=== PATIENT | male | born 1960 | race Caucasian/White ===

== ENCOUNTER 2017-10-08 00:48 | Observation (INO) | payer OTHER ==
[2017-10-08 00:52] VITALS: RESP 18
[2017-10-08] MEDS ORDERED: SODIUM CHLORIDE 0.9% 1,000 ML IV STA (00:54)
--- NOTE | 2017-10-08 01:08 | ED ---
General Adult HPI - General Chief complaint: Chest Pain Stated complaint: chest pressure,left arm numbness Time Seen by Provider: 10/08/17 00:54 Source: patient, RN notes reviewed, old records reviewed Mode of arrival: wheelchair Limitations: no limitations - History of Present Illness Initial comments: This is a 56-year-old male to the ER for evaluation. This patient was essay for evaluation regards to chest pain. Patient has history of high blood pressure smoking. Patient comes in with left-sided chest pain: Left-sided chest. States pain started his left arm numbness and tingling. Patient going on throughout the night was unable to sleep. Chest pain evaluated UL from there. Patient continued to have chest pain now no shortness of breath or diaphoresis. No modifying factors - Related Data Allergies Allergy/AdvReac Type Severity Reaction Status Date / Time Penicillins Allergy Unknown Verified 10/08/17 00:52 Review of Systems ROS Statement: Those systems with pertinent positive or pertinent negative responses have been documented in the HPI. ROS Other: All systems not noted in ROS Statement are negative. Past Medical History Past Medical History: Hyperlipidemia, Hypertension History of Any Multi-Drug Resistant Organisms: None Reported Past Surgical History: Orthopedic Surgery Past Psychological History: No Psychological Hx Reported Smoking Status: Current every day smoker Past Alcohol Use History: Rare Past Drug Use History: None Reported General Exam Limitations: no limitations General appearance: alert, in no apparent distress, anxious Head exam: Present: atraumatic, normocephalic, normal inspection Eye exam: Present: normal appearance, PERRL, EOMI. Absent: scleral icterus, conjunctival injection, periorbital swelling ENT exam: Present: normal exam, mucous membranes moist Neck exam: Present: normal inspection. Absent: tenderness, meningismus, lymphadenopathy Respiratory exam: Present: normal lung sounds bilaterally. Absent: respiratory distress, wheezes, rales, rhonchi, stridor Cardiovascular Exam: Present: regular rate, normal rhythm, normal heart sounds. Absent: systolic murmur, diastolic murmur, rubs, gallop, clicks GI/Abdominal exam: Present: soft, normal bowel sounds. Absent: distended, tenderness, guarding, rebound, rigid Extremities exam: Present: normal inspection, full ROM, normal capillary refill. Absent: tenderness, pedal edema, joint swelling, calf tenderness Back exam: Present: normal inspection Neurological exam: Present: alert, oriented X3, CN II-XII intact Psychiatric exam: Present: normal affect, normal mood Skin exam: Present: warm, dry, intact, normal color. Absent: rash Course Vital Signs 10/08/17 10/08/17 00:49 01:08 Temperature 98.4 F Pulse Rate 80 Pulse Rate [ 75 Manager Statistics ] Respiratory 18 Rate Blood Pressure 112/74 O2 Sat by Pulse 98 Oximetry - Reevaluation(s) Reevaluation #1: 10/08/17 02:02 Patient's chest pain continues here in the emergency room EKG Findings - EKG Comments: EKG Findings:: EKG shows sinus rhythm rate of 76, DE 192, QRS 106, QTc 436. EKG shows sinus rhythm rate of 67, DE 196, QRS 112, QTc 431, no morphological changes Medical Decision Making - Medical Decision Making 56 male the ER for evaluation of chest pain with positive cardiac or factors high blood pressure smoking. Patient will be admitted for cardiac observation - Lab Data Result diagrams: 10/08/17 01:00 10/08/17 01:00 Lab Results 10/08/17 10/08/17 10/08/17 Range/Units 01:00 01:00 01:00 WBC 8.2 (3.8-10.6) k/uL RBC 5.18 (4.30-5.90) m/uL Hgb 14.9 (13.0-17.5) gm/dL Hct 45.0 (39.0-53.0) % MCV 86.9 (80.0-100.0) fL MCH 28.7 (25.0-35.0) pg MCHC 33.0 (31.0-37.0) g/dL RDW 13.5 (11.5-15.5) % Plt Count 217 (150-450) k/uL Neutrophils % 51 % Lymphocytes % 34 % Monocytes % 9 % Eosinophils % 3 % Basophils % 1 % Neutrophils # 4.2 (1.3-7.7) k/uL Lymphocytes # 2.8 (1.0-4.8) k/uL Monocytes # 0.7 (0-1.0) k/uL Eosinophils # 0.2 (0-0.7) k/uL Basophils # 0.1 (0-0.2) k/uL PT (9.0-12.0) sec INR (<1.2) APTT (22.0-30.0) sec D-Dimer (<0.60) mg/L FEU Sodium 140 (137-145) mmol/L Potassium 3.8 (3.5-5.1) mmol/L Chloride 103 (98-107) mmol/L Carbon Dioxide 26 (22-30) mmol/L Anion Gap 11 mmol/L BUN 15 (9-20) mg/dL Creatinine 1.30 H (0.66-1.25) mg/dL Est GFR (CKD-EPI)AfAm 72 (>60 ml/min/1.73 sqM) Est GFR (CKD-EPI)NonAf 62 (>60 ml/min/1.73 sqM) Glucose 97 (74-99) mg/dL Calcium 10.6 H (8.4-10.2) mg/dL Magnesium 1.8 (1.6-2.3) mg/dL Total Bilirubin 0.4 (0.2-1.3) mg/dL AST 28 (17-59) U/L ALT 44 (21-72) U/L Alkaline Phosphatase 89 (38-126) U/L Total Creatine Kinase 60 (55-170) U/L CK-MB (CK-2) 1.2 (0.0-2.4) ng/mL CK-MB (CK-2) Rel Index 2.0 Troponin I <0.012 (0.000-0.034) ng/mL Total Protein 6.4 (6.3-8.2) g/dL Albumin 3.9 (3.5-5.0) g/dL Lipase 186 (23-300) U/L 10/08/17 Range/Units 01:00 WBC (3.8-10.6) k/uL RBC (4.30-5.90) m/uL Hgb (13.0-17.5) gm/dL Hct (39.0-53.0) % MCV (80.0-100.0) fL MCH (25.0-35.0) pg MCHC (31.0-37.0) g/dL RDW (11.5-15.5) % Plt Count (150-450) k/uL Neutrophils % % Lymphocytes % % Monocytes % % Eosinophils % % Basophils % % Neutrophils # (1.3-7.7) k/uL Lymphocytes # (1.0-4.8) k/uL Monocytes # (0-1.0) k/uL Eosinophils # (0-0.7) k/uL Basophils # (0-0.2) k/uL PT 10.2 (9.0-12.0) sec INR 1.0 (<1.2) APTT 24.5 (22.0-30.0) sec D-Dimer 0.28 (<0.60) mg/L FEU Sodium (137-145) mmol/L Potassium (3.5-5.1) mmol/L Chloride (98-107) mmol/L Carbon Dioxide (22-30) mmol/L Anion Gap mmol/L BUN (9-20) mg/dL Creatinine (0.66-1.25) mg/dL Est GFR (CKD-EPI)AfAm (>60 ml/min/1.73 sqM) Est GFR (CKD-EPI)NonAf (>60 ml/min/1.73 sqM) Glucose (74-99) mg/dL Calcium (8.4-10.2) mg/dL Magnesium (1.6-2.3) mg/dL Total Bilirubin (0.2-1.3) mg/dL AST (17-59) U/L ALT (21-72) U/L Alkaline Phosphatase (38-126) U/L Total Creatine Kinase (55-170) U/L CK-MB (CK-2) (0.0-2.4) ng/mL CK-MB (CK-2) Rel Index Troponin I (0.000-0.034) ng/mL Total Protein (6.3-8.2) g/dL Albumin (3.5-5.0) g/dL Lipase (23-300) U/L - Radiology Data Radiology results: report reviewed (Chest x-rays negative for acute disease), image reviewed Critical Care Time Critical Care Time: Yes Total Critical Care Time: 31 Disposition Clinical Impression: Chest pain Disposition: ADMITTED IP TO THIS [facility] Condition: Undetermined Instructions: Chest Pain (ED) Is patient prescribed a controlled substance at d/c from ED?: No Referrals: oRberto Live DO [Primary Care Provider] - 1-2 days
[2017-10-08 01:14] LABS: Basophils # (A) 0.1 k/uL (0-0.2); Basophils % (A) 1 %; Eosinophils # (A) 0.2 k/uL (0-0.7); Eosinophils % (A) 3 %; HGB 14.9 gm/dL (13.0-17.5); Lymphocytes # (A) 2.8 k/uL (1.0-4.8); Lymphocytes % (A) 34 %; MCH 28.7 pg (25.0-35.0); MCV 86.9 fL (80.0-100.0); Mean Platelet Volume 7.2; Monocytes # (A) 0.7 k/uL (0-1.0); Monocytes % (A) 9 %; Neutrophils # (A) 4.2 k/uL (1.3-7.7); Neutrophils % (A) 51 %; Platelet Count 217 k/uL (150-450); RBC 5.18 m/uL (4.30-5.90); RDW 13.5 % (11.5-15.5); WBC 8.2 k/uL (3.8-10.6)
[2017-10-08 01:28] LABS: D-Dimer 0.28 mg/L FEU (<0.60); Partial Thromboplastin Time 24.5 sec (22.0-30.0); Prothrombin Time 10.2 sec (9.0-12.0)
[2017-10-08 01:33] LABS: Albumin 3.9 g/dL (3.5-5.0); Calcium 10.6 mg/dL (8.4-10.2); Magnesium 1.8 mg/dL (1.6-2.3); Potassium 3.8 mmol/L (3.5-5.1); Total Bilirubin 0.4 mg/dL (0.2-1.3); Total Protein 6.4 g/dL (6.3-8.2)
[2017-10-08 01:37] LABS: Creatine Kinase 60 U/L (55-170)
[2017-10-08 01:50] LABS: Creatine Kinase MB 1.2 ng/mL (0.0-2.4); Troponin I <0.012 ng/mL (0.000-0.034)
--- NOTE | 2017-10-08 01:56 | XR ---
EXAMINATION TYPE: XR chest 2V DATE OF EXAM: 10/08/2017 COMPARISON: NONE HISTORY: Chest pain TECHNIQUE: Frontal and lateral views of the chest are obtained. FINDINGS: Heart and mediastinum are normal. Lungs are clear. Diaphragm is normal. Bony thorax appear s normal. IMPRESSION: Normal chest.
[2017-10-08] MEDS ORDERED: NITROGLYCERIN SL TABS 0.4 MG TAB SUBLINGUAL PRN (02:03)
[2017-10-08] MEDS ORDERED: ASPIRIN 81 MG PO STA (02:03)
[2017-10-08] MEDS ORDERED: HEPARIN SODIUM,PORCINE 5,000 UNIT/ML 1 ML VIAL IV PRN (02:03)
[2017-10-08] MEDS ORDERED: HEPARIN SODIUM,PORCINE 5,000 UNIT/ML 1 ML VIAL IV ONE (02:03)
[2017-10-08] MEDS ORDERED: HEPARIN SOD,PORK IN 0.45% NACL 25,000 UNIT in 0.45% NACL 1 500ML.BAG IV SCH (02:15)
[2017-10-08 03:04] VITALS: BMI 34.9
[2017-10-08 07:48] LABS: Platelet Count 218 k/uL (150-450)
[2017-10-08 08:07] LABS: Creatine Kinase 46 U/L (55-170)
[2017-10-08 08:20] LABS: Creatine Kinase MB 0.9 ng/mL (0.0-2.4); Troponin I <0.012 ng/mL (0.000-0.034)
[2017-10-08 08:41] LABS: Cholesterol 130 mg/dL (<200); HDL Cholesterol 38 mg/dL (40-60); LDL Cholesterol,Calculated 63 mg/dL (0-99); Triglycerides 143 mg/dL (<150)
[2017-10-08] MEDS ORDERED: LISINOPRIL-HCTZ 20-12.5 MG 1 EACH TAB PO SCH (09:00)
[2017-10-08] MEDS ORDERED: METOPROLOL TARTRATE 25 MG TAB PO SCH (09:00)
[2017-10-08] MEDS ORDERED: ATORVASTATIN 10 MG TAB PO SCH (09:00)
[2017-10-08] MEDS ORDERED: ASPIRIN 81 MG PO SCH (09:00)
--- NOTE | 2017-10-08 09:24 | P.CRDCN ---
History of Present Illness History of present illness: 56-year-old male patient who started experiencing numbness and tingling in the left arm and then discomfort in the chest associated with sweating that lasted for a few hours. The pain is very mild but was uncomfortable enough that he got worried. He came to the hospital for cardiac enzymes are normal ECG shows Q waves in the inferior leads and no ST segment abnormalities. He feels strange when he takes atorvastatin everyday so he takes it only 2-3 times a week. History of hypertension history of dyslipidemia. On low-dose statins his LDL is 63 which is excellent. Suggest holding metoprolol and proceeding and exercise stress echo today PC for dictation Claudia practitioner Past Medical History Past Medical History: Hyperlipidemia, Hypertension Additional Past Medical History / Comment(s): Kidney stones History of Any Multi-Drug Resistant Organisms: None Reported Past Surgical History: Orthopedic Surgery Additional Past Surgical History / Comment(s): Right knee scope, colonscopy Past Anesthesia/Blood Transfusion Reactions: No Reported Reaction Past Psychological History: No Psychological Hx Reported Smoking Status: Current every day smoker Past Alcohol Use History: Rare Past Drug Use History: None Reported - Past Family History Father Family Medical History: Cancer Additional Family Medical History / Comment(s): prostate CA Mother Family Medical History: Cancer Additional Family Medical History / Comment(s): Lung CA Medications and Allergies Home Medications Medication Instructions Recorded Confirmed Type Aspirin 81 mg PO DAILY 10/08/17 10/08/17 History Atorvastatin [Lipitor] 10 mg PO TUTH 10/08/17 10/08/17 History Lisinopril-Hctz 20-12.5 mg 1 tab PO DAILY 10/08/17 10/08/17 History [Zestoretic 20-12.5] Metoprolol Tartrate [Lopressor] 25 mg PO DAILY@1800 10/08/17 10/08/17 History Allergies Allergy/AdvReac Type Severity Reaction Status Date / Time Penicillins Allergy Unknown Verified 10/08/17 07:45 Physical Exam Vitals: Vital Signs Temp Pulse Pulse Pulse Resp BP BP 10/08/17 07:29 97.7 F 73 18 106/68 10/08/17 03:26 97.8 F 67 18 10/08/17 03:22 18 10/08/17 02:37 98.4 F 76 18 118/79 10/08/17 02:01 71 18 116/71 10/08/17 01:08 75 10/08/17 00:49 98.4 F 80 18 112/74 BP Pulse Ox 10/08/17 07:29 98 10/08/17 03:26 137/73 97 10/08/17 03:22 10/08/17 02:37 98 10/08/17 02:01 98 10/08/17 01:08 10/08/17 00:49 98 Intake and Output 10/07/17 10/08/17 10/08/17 22:59 06:59 14:59 Other: # Voids 1 1 Weight 116.7 kg Results 10/08/17 07:25 10/08/17 01:00 Cardiac Enzymes 10/08/17 10/08/17 10/08/17 Range/Units 01:00 01:00 07:25 AST 28 (17-59) U/L CK-MB (CK-2) 1.2 0.9 (0.0-2.4) ng/mL Troponin I <0.012 <0.012 (0.000-0.034) ng/mL Coagulation 10/08/17 10/08/17 Range/Units 01:00 07:25 PT 10.2 (9.0-12.0) sec APTT 24.5 34.4 H (22.0-30.0) sec Lipids 10/08/17 Range/Units 07:25 Triglycerides 143 (<150) mg/dL Cholesterol 130 (<200) mg/dL HDL Cholesterol 38 L (40-60) mg/dL CBC 10/08/17 10/08/17 Range/Units 01:00 07:25 WBC 8.2 (3.8-10.6) k/uL RBC 5.18 (4.30-5.90) m/uL Hgb 14.9 (13.0-17.5) gm/dL Hct 45.0 (39.0-53.0) % Plt Count 217 218 (150-450) k/uL Comprehensive Metabolic Panel 10/08/17 Range/Units 01:00 Sodium 140 (137-145) mmol/L Potassium 3.8 (3.5-5.1) mmol/L Chloride 103 (98-107) mmol/L Carbon Dioxide 26 (22-30) mmol/L BUN 15 (9-20) mg/dL Creatinine 1.30 H (0.66-1.25) mg/dL Glucose 97 (74-99) mg/dL Calcium 10.6 H (8.4-10.2) mg/dL AST 28 (17-59) U/L ALT 44 (21-72) U/L Alkaline Phosphatase 89 (38-126) U/L Total Protein 6.4 (6.3-8.2) g/dL Albumin 3.9 (3.5-5.0) g/dL Current Medications Generic Name Dose Route Start Last Admin Trade Name Freq PRN Reason Stop Dose Admin Aspirin 81 mg 10/08/17 09:00 Aspirin PO DAILY [facility] Atorvastatin Calcium 10 mg 10/08/17 09:00 Lipitor PO TUTH [facility] Lisinopril/HCTZ 1 each 10/08/17 09:00 Zestoretic 20-12.5 PO DAILY [facility] Heparin Sodium (Porcine) 0 unit 10/08/17 02:03 Heparin IV Q6HR PRN Low PTT Protocol Sodium Chloride 1,000 mls @ 100 mls/hr 10/08/17 00:54 10/08/17 01:13 Saline 0.9% IV 10/08/17 10:53 100 mls/hr .Q10H STA Administration Heparin Sodium/Sodium Chloride 500 mls @ 19.81 mls/hr 10/08/17 02:15 02:33 25,000 unit/ Sodium Chloride IV 8.5 units/kg/hr .Q24H ANDREAS 19.81 mls/hr Administration Protocol 8.5 UNITS/KG/HR Metoprolol Tartrate 25 mg 10/08/17 09:00 Lopressor PO BID [facility] Nitroglycerin 0.4 mg 10/08/17 02:03 Nitrostat SUBLINGUAL Q5M PRN Chest Pain Intake and Output 10/07/17 10/08/17 10/08/17 22:59 06:59 14:59 Other: # Voids 1 1 Weight 116.7 kg 10/08/17 07:25 10/08/17 01:00
--- NOTE | 2017-10-08 10:47 | ECHOF ---
Referral Reason: MEASUREMENTS -------- HEIGHT: 182.9 cm WEIGHT: 116.6 kg BP: 106/68 RVIDd: 3.8 cm (< 3.3) IVSd: 1.5 cm (0.6 - 1.1) LVIDd: 4.5 cm (3.9 - 5.3) LVPWd: 1.3 cm (0.6 - 1.1) IVSs: 1.8 cm LVIDs: 3.1 cm LVPWs: 1.8 cm LA Diam: 4.0 cm (2.7 - 3.8) LAESV Index (A-L): 29.31 ml/m Ao Diam: 3.4 cm (2.0 - 3.7) AV Cusp: 2.2 cm (1.5 - 2.6) MV EXCURSION: 11.063 mm (> 18.000) MV EF SLOPE: 69 mm/s (70 - 150) EPSS: 0.4 cm MV E Lemuel: 0.77 m/s MV DecT: 228 ms MV A Lemuel: 0.71 m/s MV E/A Ratio: 1.08 RAP: 15.00 mmHg RVSP: 32.27 mmHg FINDINGS -------- Resting bradycardia (HR<60bpm). This was a technically good study. The left ventricular size is normal. There is moderate concentric left ventricular hypertrophy. O verall left ventricular systolic function is low-normal with, an EF between 50 - 55 %. Basal inferi or LV wall motion is hypokinetic. Basal inferoseptal LV wall motion is hypokinetic. The right ventricle is mild to moderately enlarged. LA is midly dilated 29-33ml/m2. The right atrium is normal in size. The aortic valve is trileaflet and appears structurally normal. The mitral valve is normal. Mild tricuspid regurgitation present. Right ventricular systolic pressure is normal at < 35 mmHg. There is no evidence of pulmonary hypertension. Trace/mild (physiologic) pulmonic regurgitation. The aortic root size is normal. The inferior vena cava is dilated with poor inspiratory collapse which is consistent with estimated r ight atrial pressure of 15 mmHg. There is no pericardial effusion. CONCLUSIONS -------- 1. Resting bradycardia (HR<60bpm). 2. This was a technically good study. 3. The left ventricular size is normal. 4. There is moderate concentric left ventricular hypertrophy. 5. Overall left ventricular systolic function is low-normal with, an EF between 50 - 55 %. 6. Basal inferior LV wall motion is hypokinetic. 7. Basal inferoseptal LV wall motion is hypokinetic. 8. The right ventricle is mild to moderately enlarged. 9. LA is midly dilated 29-33ml/m2. 10. The right atrium is normal in size. 11. The aortic valve is trileaflet and appears structurally normal. 12. The mitral valve is normal. 13. Mild tricuspid regurgitation present. 14. Right ventricular systolic pressure is normal at < 35 mmHg. 15. There is no evidence of pulmonary hypertension. 16. Trace/mild (physiologic) pulmonic regurgitation. 17. The aortic root size is normal. 18. The inferior vena cava is dilated with poor inspiratory collapse which is consistent with estimat ed right atrial pressure of 15 mmHg. 19. There is no pericardial effusion. CHARGE OPERATOR: Naima Mars RDCS
--- NOTE | 2017-10-08 11:40 | P.CRDCN ---
History of Present Illness History of present illness: Mr. Berg is a pleasant 56-year-old male past medical history significant for hypertension, dyslipidemia and chronic nicotine dependence. He denies history of coronary artery disease and follows with Dr. AINSLEY Yo in the office. We have been asked to see him in consultation for chest pain. He states last night while laying in bed last night around midnight developed tingling in the left arm and then a subsequent pressure sensation in the left anterior chest wall in the precordial region. He also felt diaphoretic throughout the event as well. He denies associated shortness of breath, dizziness, palpitations, nausea or vomiting. The pressure sensation with constant with no specific aggravating or alleviating factors. The symptoms persisted for approximately 4-5 hours and ultimately subsided on its own. EKG reveals sinus mechanism with Q-waves inferiorly with no acute ST or T-wave abnormalities noted. Chest xray is negative for an acute cardiopulmonary process. Laboratory data reviewed, hemoglobin 14.9, platelets 218, d-dimer 0.28, sodium 140, potassium 3.8, magnesium 1.8, creatinine 1.3, cardiac enzymes negative 2. LDL 63, HDL 38, triglycerides 143 and total cholesterol 130. Current cardiac medications include Lopressor 25 mg daily, lisinopril/HCTZ 20/ 12.5 mg daily, aspirin 81 mg daily and he takes atorvastatin 10 mg 23 times per week. He states he gets leg cramps and is somewhat intolerant this medication. Most recent stress test performed in the office 2014 was negative for reversible cardiac ischemia with fixed defect inferior wall possible diaphragmatic attentuation. Most recent echocardiogram 2015 revealed preserved LV systolic function. Review of Systems At the time of my exam: CONSTITUTIONAL: Denies fever. Denies chills. EYES: Denies blurred vision. Denies vision changes. Denies eye pain. EARS, NOSE, MOUTH & THROAT: Denies headache. Denies sore throat. Denies ear pain. CARDIOVASCULAR: Denies chest pain. Denies shortness of breath. Denies orthopnea. Denies PND. Denies palpitations. RESPIRATORY: Denies cough. GASTROINTESTINAL: Denies abdominal pain. Denies diarrhea. Denies constipation. Denies nausea. Denies vomiting. MUSCULOSKELETAL: Denies myalgias. INTEGUMENTARY: Denies pruitis. Denies rash. NEUROLOGIC: Denies numbness. Denies tingling. Denies weakness. PSYCHIATRIC: Denies anxiety. Denies depression. ENDOCRINE: Denies fatigue. Denies weight change. Denies polydipsia. Denies polyurina. GENITOURINARY: Denies burning, hematuria or urgency with micturation. HEMATOLOGIC: Denies history of anemia. Denies bleeding. Past Medical History Past Medical History: Hyperlipidemia, Hypertension Additional Past Medical History / Comment(s): Kidney stones History of Any Multi-Drug Resistant Organisms: None Reported Past Surgical History: Orthopedic Surgery Additional Past Surgical History / Comment(s): Right knee scope, colonscopy Past Anesthesia/Blood Transfusion Reactions: No Reported Reaction Past Psychological History: No Psychological Hx Reported Smoking Status: Current every day smoker Past Alcohol Use History: Rare Past Drug Use History: None Reported - Past Family History Father Family Medical History: Cancer Additional Family Medical History / Comment(s): prostate CA Mother Family Medical History: Cancer Additional Family Medical History / Comment(s): Lung CA Medications and Allergies Home Medications Medication Instructions Recorded Confirmed Type Aspirin 81 mg PO DAILY 10/08/17 10/08/17 History Atorvastatin [Lipitor] 10 mg PO TUTH 10/08/17 10/08/17 History Lisinopril-Hctz 20-12.5 mg 1 tab PO DAILY 10/08/17 10/08/17 History [Zestoretic 20-12.5] Metoprolol Tartrate [Lopressor] 25 mg PO DAILY@1800 10/08/17 10/08/17 History Allergies Allergy/AdvReac Type Severity Reaction Status Date / Time Penicillins Allergy Unknown Verified 10/08/17 07:45 Physical Exam Vitals: Vital Signs Temp Pulse Pulse Pulse Resp BP BP 10/08/17 07:29 97.7 F 73 18 106/68 10/08/17 03:26 97.8 F 67 18 10/08/17 03:22 18 10/08/17 02:37 98.4 F 76 18 118/79 10/08/17 02:01 71 18 116/71 10/08/17 01:08 75 10/08/17 00:49 98.4 F 80 18 112/74 BP Pulse Ox 10/08/17 07:29 98 10/08/17 03:26 137/73 97 10/08/17 03:22 10/08/17 02:37 98 10/08/17 02:01 98 10/08/17 01:08 10/08/17 00:49 98 Intake and Output 10/07/17 10/08/17 10/08/17 22:59 06:59 14:59 Other: # Voids 1 1 Weight 116.7 kg Blood pressure 106/68 heart rate 73 afebrile maintaining oxygen saturation on room air GENERAL: This is a 56-year-old male in no apparent distress at the time of my examination. HEENT: Head is atraumatic, normocephalic. Pupils are equal, round. Sclerae anicteric. Conjunctivae are clear. Mucous membranes of the mouth are moist. Neck is supple. There is no jugular venous distention. No carotid bruit is heard. LUNGS: Clear to auscultation no wheezes, rales or rhonchi. No chest wall tenderness is noted on palpation or with deep breathing. HEART: Regular rate and rhythm without murmurs, rubs or gallops. S1 and S2 heard. ABDOMEN: Soft, nontender. Bowel sounds are heard. No organomegaly noted. EXTREMITIES: Trace bilateral lower extremity edema, patient states this is chronic and ongoing. No calf tenderness noted. VASCULAR: Radial and dorsalis pedis pulses palpated, no evidence of clubbing. NEUROLOGIC: Patient is awake, alert and oriented x3. Results 10/08/17 07:25 10/08/17 01:00 Cardiac Enzymes 10/08/17 10/08/17 Range/Units 01:00 01:00 AST 28 (17-59) U/L CK-MB (CK-2) 1.2 (0.0-2.4) ng/mL Troponin I <0.012 (0.000-0.034) ng/mL Coagulation 10/08/17 10/08/17 Range/Units 01:00 07:25 PT 10.2 (9.0-12.0) sec APTT 24.5 34.4 H (22.0-30.0) sec CBC 10/08/17 10/08/17 Range/Units 01:00 07:25 WBC 8.2 (3.8-10.6) k/uL RBC 5.18 (4.30-5.90) m/uL Hgb 14.9 (13.0-17.5) gm/dL Hct 45.0 (39.0-53.0) % Plt Count 217 218 (150-450) k/uL Comprehensive Metabolic Panel 10/08/17 Range/Units 01:00 Sodium 140 (137-145) mmol/L Potassium 3.8 (3.5-5.1) mmol/L Chloride 103 (98-107) mmol/L Carbon Dioxide 26 (22-30) mmol/L BUN 15 (9-20) mg/dL Creatinine 1.30 H (0.66-1.25) mg/dL Glucose 97 (74-99) mg/dL Calcium 10.6 H (8.4-10.2) mg/dL AST 28 (17-59) U/L ALT 44 (21-72) U/L Alkaline Phosphatase 89 (38-126) U/L Total Protein 6.4 (6.3-8.2) g/dL Albumin 3.9 (3.5-5.0) g/dL Current Medications Generic Name Dose Route Start Last Admin Trade Name Freq PRN Reason Stop Dose Admin Aspirin 81 mg 10/08/17 09:00 Aspirin PO DAILY [facility] Atorvastatin Calcium 10 mg 10/08/17 08:15 Lipitor PO TUTH [facility] Lisinopril/HCTZ 1 each 10/08/17 09:00 Zestoretic 20-12.5 PO DAILY [facility] Heparin Sodium (Porcine) 0 unit 10/08/17 02:03 Heparin IV Q6HR PRN Low PTT Protocol Sodium Chloride 1,000 mls @ 100 mls/hr 10/08/17 00:54 10/08/17 01:13 Saline 0.9% IV 10/08/17 10:53 100 mls/hr .Q10H STA Administration Heparin Sodium/Sodium Chloride 500 mls @ 19.81 mls/hr 10/08/17 02:15 02:33 25,000 unit/ Sodium Chloride IV 8.5 units/kg/hr .Q24H ANDREAS 19.81 mls/hr Administration Protocol 8.5 UNITS/KG/HR Metoprolol Tartrate 25 mg 10/08/17 09:00 Lopressor PO BID [facility] Nitroglycerin 0.4 mg 10/08/17 02:03 Nitrostat SUBLINGUAL Q5M PRN Chest Pain Intake and Output 10/07/17 10/08/17 10/08/17 22:59 06:59 14:59 Other: # Voids 1 1 Weight 116.7 kg 10/08/17 07:25 10/08/17 01:00 Assessment and Plan Assessment: ASSESSMENT Chest pain, atypical. An acute coronary event has been ruled out with no EKG evidence of ischemia and negative cardiac enzymes. Hypertension Dyslipidemia Chronic tobacco use Obesity PLAN Obtain 2D echocardiogram and doppler study to assess cardiac structure and function. Perform stress echocardiogram to assess for stress induced ischemic changes. If stress test is normal he is stable from a cardiac perspective, follow up with Dr. Yo in 2-3 weeks. Smoking cessation recommended. Thank you kindly for this consultation. Nurse Practitioner note has been reviewed, I agree with a documented findings and plan of care. Patient was seen and examined.
[2017-10-08 16:14] VITALS: BP 108/69; PULSE 84; TEMP 98.4
[2017-10-08] MEDS ORDERED: NICOTINE 14MG/24HR PATCH TRANSDERM SCH (17:45)
--- NOTE | 2017-10-08 19:10 | HP ---
HISTORY AND PHYSICAL DATE OF SERVICE AND ADMISSION: 10/08/2017. PRESENTING COMPLAINT: Chest pain. HISTORY OF PRESENTING COMPLAINT: A very pleasant 56-year-old patient Dr. Live, also sees Dr. Usama Yo. Chronic stable medical conditions include hypertension, hyperlipidemia, is a smoker. Patient presented when in the night patient developed tingling and pain in the left arm and also the left precordial chest pain, felt like a pressure. The patient had an episode of perspiration. There was no dizziness. Not lightheaded. Did not feel tired. There was no shortness of breath. Symptoms lasted for at least over an hour and patient decided to come to the ER. The patient was admitted with a diagnosis of unstable angina, started on IV heparin. The patient denies any prior cardiac history. REVIEW OF SYSTEMS: CONSTITUTIONAL: None. HEENT: None. RESPIRATORY: None. CARDIOVASCULAR: As above. GASTROINTESTINAL: None. GENITOURINARY: None. MUSCULOSKELETAL: None. DERMATOLOGICAL: None. HEMATOLOGIC: None. LYMPHATIC: None. PSYCHIATRY: None. NEUROLOGICAL: None. PAST MEDICAL HISTORY: Hyperlipidemia, hypertension, kidney stones. PAST SURGICAL HISTORY: Right knee scope. SOCIAL HISTORY: The patient smokes half a pack a day for 30 years. Alcohol rarely, as a research quality assurance specialist. . FAMILY HISTORY: Prostate cancer. HOME MEDICATIONS: 1. Lopressor 25 mg p.o. daily 6:00 p.m. 2. Zestoretic /12.5 one tablet p.o. daily. 3. Lipitor 10 mg p.o. on Saturday and . 4. Aspirin 81 mg p.o. daily. ALLERGIES: PENICILLIN. EXAMINATION: VITAL SIGNS: On presentation, temperature 98.4, pulse 80, respirations 18, blood pressure 112/74, pulse ox 98% on room air. GENERAL APPEARANCE: Well-built, BMI 34.9, sitting up, comfortable. EYES: Pupils equal. Conjunctivae normal. HEENT: External appearance of nose and ears normal. Oral cavity normal. NECK: JVD not raised. Mass not palpable. RESPIRATORY: Effort normal. LUNGS: Fair air entry. CARDIOVASCULAR: First and second sounds normal. No edema. ABDOMEN: Soft, nontender. Liver and spleen not palpable. LYMPHATIC: No lymph node palpable in neck or axillae. PSYCHIATRY: Alert and oriented x3. Mood and affect were normal. NEUROLOGICAL: Pupils equal. Cranial nerves grossly intact. Power and sensation grossly intact. INVESTIGATIONS: Chest x-ray independently interpreted by me shows some cardiomegaly, prominent pulmonary artery. No infiltrate. EKG interpreted by me shows Q-waves in leads II, III and aVF and poor R-wave progression in the anterior lead. Labs show creatinine of 1.30. Troponin x2 negative. ASSESSMENT: 1. Unstable angina in a patient whose cardiac risk factors include hypertension, hyperlipidemia, nicotine dependence, being overweight. The patient's troponins are negative. The patient's EKG findings are suggestive of some underlying coronary artery disease. 2. Essential hypertension. 3. Hyperlipidemia. 4. Chronic nicotine dependence. Patient is a cigarette smoker. 5. Obesity, BMI 34.9. 6. IV heparin monitoring. Patient is put on IV heparin in the ER and aspirin. Cardiology was consulted who ordered a stress test. Care was discussed with the patient. Advised against smoking. 7. SMOKING CESSATION COUNSELING: Smoking cessation counseling was done with the patient. Patient will be ordered a nicotine patch. The patient has decided to stop smoking. More than 3 minutes was spent on this aspect of counseling. MMODL / IJN: [id number] /
--- NOTE | 2017-10-08 20:52 | ECHOS ---
STRESS ECHOCARDIOGRAM INDICATIONS: Chest pain. MEDICATIONS: Lisinopril, aspirin, atorvastatin. BASELINE HEART RATE: 65 BASELINE BLOOD PRESSURE: 106/70 MAXIMUM HEART RATE: 144 MAXIMUM BLOOD PRESSURE: 141/54 85% MPHR: 141 100% MPHR: 166 METS: 8.9 MAXIMUM STAGE REACHED: II TOTAL EXERCISE TIME: 7:48 CLINICAL INFORMATION: Wil Berg is a 56-year-old gentleman who presented with chest and arm discomfort. He has an abnormal ECG with Q-waves in inferior leads. He underwent an exercise stress echo. Baseline heart rate 65 beats per minute. Baseline blood pressure 106/70 mmHg. Baseline 12-lead ECG shows sinus rhythm with Q-waves in the inferior leads, normal ST segments. Patient exercised on a Brandt protocol for 7 minutes 48 seconds, achieving a peak heart rate of 144 beats per minute. Normal blood pressure response to exercise. He was short of breath at peak exercise. There was no ECG evidence for ischemia. No arrhythmias were noted. Baseline 2D echo images showed normal LV size and systolic function without segmental wall motion abnormalities. At peak exercise, there was excellent augmentation of overall LV contractility without developing any wall motion abnormalities. At recovery, regional and global LV systolic function remained normal. IMPRESSION: No ECG or echocardiographic evidence for ischemia. Average exercise capacity. MMODL / IJN: [id number] /
[2017-10-09] MEDS ORDERED: ASPIRIN 325 MG TAB PO SCH (09:00)
--- NOTE | 2017-10-12 22:29 | DS ---
DISCHARGE SUMMARY DATE OF ADMISSION: 10/08/2017 DATE OF DISCHARGE: 10/08/2017 FINAL DIAGNOSES: 1. Chest pain, could be musculoskeletal. 2. Essential hypertension. Hyperlipidemia. 3. Chronic nicotine dependence. Patient is a cigarette smoker. 4. Obesity, BMI 34.9. 5. IV heparin monitoring. HOSPITAL COURSE: This patient with cardiac risk factors presented with chest pain. Troponins were negative. Did undergo a stress echocardiogram that was negative. Seen by Dr. Aroldo Dawkins, okayed to be discharged. EXAM: Lungs are clear. CARDIOVASCULAR: First and second sounds normal. DISCHARGE MEDICATIONS: 1. Aspirin 81 mg a day. 2. Lipitor 10 mg on Tuesdays and . 3. Zestoretic 20/03.5 one tablet p.o. daily. 4. Lopressor 25 mg p.o. b.i.d. 5. Nicotine 14 mg patch. 6. Nitrostat 0.4 sublingual q.5 p.r.n. FOLLOWUP: Dr. Usama Yo in 2 weeks. Follow up with Dr. Live in 1 week. MMODL / IJN: [id number] /
== END 2017-10-08 18:10 | disposition home or self-care (01) ==
LOC: EC 00:48 → 3OBS 02:03
PROVIDERS: ADMIT Hospitalist; ATTEND Hospitalist
DX: R07.89 Other chest pain (principal); I10 Essential (primary) hypertension; E78.5 Hyperlipidemia, unspecified; R07.2 Precordial pain; R20.0 Anesthesia of skin; R20.2 Paresthesia of skin; R61 Generalized hyperhidrosis; M79.602 Pain in left arm; F17.210 Nicotine dependence, cigarettes, uncomplicated; Z87.442 Personal history of urinary calculi; Z79.899 Other long term (current) drug therapy; Z79.82 Long term (current) use of aspirin; Z88.0 Allergy status to penicillin; Z68.34 Body mass index [BMI] 34.0-34.9, adult; E66.9 Obesity, unspecified; Z80.42 Family history of malignant neoplasm of prostate; Z80.1 Family history of malignant neoplasm of trachea, bronchus and lung
CPT/HCPCS: 99291 ×2; 96361 ×2; 96376 ×2; 96365 ×2; 96366; 36415; 93005; 93306; 93351; 85379; 80061; 80053; 82550; 82553; 83690; 83735; 84484; 85025; 85049; 85610; 85730; 71046; G0378; J1644 ×2

== ENCOUNTER → 2018-01-04 | Outpatient (CLI) | payer OTHER ==
--- NOTE | 2018-01-04 20:10 | MR ---
EXAMINATION TYPE: MR brain wo con DATE OF EXAM: 01/04/2018 COMPARISON: NONE HISTORY: Headaches, neck pain TECHNIQUE: Multiplanar, multisequence images of the brain and brainstem is performed without intravenous contras t. FINDINGS: Diffusion weighted images demonstrate no evidence of a recent infarct or other diffusion ab normality. Punctate focus of T2/FLAIR hyperintensity is seen within the left frontal lobe on FLAIR f at sat axial image 17 as well as subcortical foci in the bilateral frontal lobes on image 22 and 23. Overall these are mild burden. There is no extra-axial fluid collection or significant white matter s ignal abnormality. The ventricular system and cisternal spaces are normal in size and appearance. T he brain volume is age appropriate. Midline structures demonstrate normal morphology. The craniocervical junction appears within normal limits. The dural venous sinuses appear patent. The globes are intact. Secretions are noted within th e posterior nasopharynx. Mild mucosal thickening of the ethmoid are noted. Remaining visualized paran yarely sinuses and mastoid air cells are well aerated. There is left middle and inferior nasal turbinat e mucosal hypertrophy. IMPRESSION: 1. No evidence of territorial infarct or midline shift. No mass effect. 2. Mild burden nonspecific white matter change, most commonly on the basis of microangiopathy. 3. Mild mucosal thickening in the ethmoid sinuses, left middle and inferior nasal turbinate hypertrop hy and retained secretions within the posterior nasopharynx.
== END | disposition home or self-care (01) ==
LOC: RADMRIMAIN 14:21
PROVIDERS: ATTEND Psychiatry & Neurology Neurology
DX: J34.3 Hypertrophy of nasal turbinates (principal); R90.82 White matter disease, unspecified; Z88.0 Allergy status to penicillin
CPT/HCPCS: 70551

== ENCOUNTER → 2019-03-23 | Outpatient (CLI) | payer OTHER ==
--- NOTE | 2019-03-23 07:31 | US ---
EXAMINATION TYPE: US venous doppler duplex LE BI DATE OF EXAM: 03/23/2019 7:15 AM COMPARISON: NONE CLINICAL HISTORY: 58-year-old male R60.0 Localized Edema. Gained 50lbs and now has swollen legs, no h /o DVT SIDE PERFORMED: Bilateral TECHNIQUE: The lower extremity deep venous system is examined utilizing real time linear array sonog deondre with graded compression, doppler sonography and color-flow sonography. FINDINGS: VESSELS IMAGED: External Iliac Vein (EIV) Common Femoral Vein Deep Femoral Vein Greater Saphenous Vein * Femoral Vein Popliteal Vein Small Saphenous Vein * Proximal Calf Veins (* superficial vessels) Right Leg: Appears negative for DVT Left Leg: Appears negative for DVT IMPRESSION: No evidence for DVT within the bilateral lower extremities imaged from the groin to the upper calves.
== END | disposition home or self-care (01) ==
LOC: RADUSWWP 06:46
PROVIDERS: ATTEND Family Medicine
DX: R60.0 Localized edema (principal)
CPT/HCPCS: 93970

== ENCOUNTER → 2019-08-21 | Outpatient (CLI) | payer OTHER ==
[2019-08-21 15:26] LABS: African American GFR (CKD) 77.9 (60.0-200.0); Anion Gap 5.8 mmol/L (4.00-12.00); BUN/Creat Ratio 11.67 Ratio (12.00-20.00); Calcium 9.9 mg/dL (8.7-10.3); Carbon Dioxide 29.2 mmol/L (21.6-31.8); Non-African American GFR(CKD) 67.2 (60.0-200.0); Potassium 4.6 mmol/L (3.5-5.5)
== END | disposition home or self-care (01) ==
LOC: LABWHC1 09:11
PROVIDERS: ATTEND Urology
DX: Z01.818 Encounter for other preprocedural examination (principal); C61 Malignant neoplasm of prostate
CPT/HCPCS: 36415; 80048

== ENCOUNTER → 2019-08-25 | Outpatient (CLI) | payer OTHER | END | disposition home or self-care (01) | LOC: LABWHC1 14:32 | PROVIDERS: ATTEND Urology | DX: Z11.59 Encounter for screening for other viral diseases (principal) | CPT/HCPCS: 87635 ==

== ENCOUNTER → 2019-08-31 | Outpatient (CLI) | payer OTHER | END | disposition home or self-care (01) | LOC: LABWHC1 14:53 | PROVIDERS: ATTEND Urology | DX: Z11.59 Encounter for screening for other viral diseases (principal) ==

== ENCOUNTER 2019-09-02 14:41 | Day surgery (SDC) | payer OTHER ==
[2019-09-01 11:05] VITALS: BMI 37.9
[~2019-09-02 14:41] MED LIST: DEXAMETHASONE SOD PHOSPHATE 10 MG/ML 1 ML VIAL IV ONE; HYDROmorphone 0.5 MG/0.5 ML SYRINGE IVP PRN; LACTATED RINGERS 1,000 ML IV SCH; LEVOFLOXACIN 500MG-D5W PMX 500 MG in DEXTROSE/WATER 1 100ML.BAG IVPB ONE; LIDOCAINE 1% (10MG/ML) FOR IV START INTRADERMA PRN; ONDANSETRON 4 MG/2 ML VIAL IVP ONE
[2019-09-02 15:09] VITALS: TEMP 96.8
[2019-09-02] MEDS ORDERED: KETAMINE 10 MG/ML 20 ML VIAL ONE (16:13)
[2019-09-02] MEDS ORDERED: fentaNYL (PF) 50 MCG/ML 2 ML AMP ONE (16:13)
[2019-09-02] MEDS ORDERED: MIDAZOLAM 2 MG/2 ML VIAL ONE (16:13)
[2019-09-02] MEDS ORDERED: PROPOFOL 10 MG/ML 20 ML VIAL IV ONE (16:13)
[2019-09-02] MEDS ORDERED: LIDOCAINE 2% INJ 20 MG/ML SQ ONE ×2 (16:31)
--- NOTE | 2019-09-02 16:43 | P.OP ---
Date of Procedure: 09/02/19 Preoperative Diagnosis: Adenocarcinoma of the prostate Postoperative Diagnosis: Same Procedure(s) Performed: SpaceOar Implant Anesthesia: MAC Surgeon: Tommy Gonzalez Estimated Blood Loss (ml): 5 IV fluids (ml): 100 Pathology: none sent Condition: stable Disposition: PACU Indications for Procedure: The patient is a 58-year-old white male recently found to have an elevated PSA level of 4.47. DIOGENES revealed no prostate nodules. Prostate ultrasound revealed a prostate volume of 52 mL. 2 of 12 biopsies showed [place] 7 (3+4) adenocarcinoma, low volume. The Polaris score is 3.6. Alternative treatment options have been reviewed in detail with the patient and his . He has elected to be treated with IMRT. He desires the SpaceOar implant to decrease the likelihood of radiation proctitis. Operative Findings: Excellent separation of prostate and rectum achieved. Description of Procedure: The patient was taken to the operating room and placed in the dorsolithotomy position, with his legs supported in Bob stirrups. The external genitalia was prepped and draped sterilely. The Bruel and Kjaer transrectal ultrasound probe was placed intrarectally. The prostate was imaged. The probe was then placed within the stabilizing stand. A spinal needle was advanced under ultrasonic guidance to the level of the urogenital diaphragm, and 2% lidocaine was used to infiltrate the tissues as the needle was withdrawn. Next, the SpaceOAR needle was passed through the midline of the perineum, 1-2 cm anterior to the anal opening. The needle was slowly advanced under ultrasonic guidance until the needle tip was located within the fat plane between the prostate and rectum, at the level of the mid prostate gland. The needle was confirmed to be midline on the axial imaging. A small amount of normal saline was injected for hydrodissection. Next, the SpaceOAR components were mixed and loaded into the Y connector per protocol. The Y connector was then connected to the needle, and the components were injected slowly over a course of approximately 12 seconds. A total of 13 ml was injected. Significant distance was created between the prostate and rectum, as desired. It should be noted that at no point was there any concern of rectal perforation. The needle was withdrawn, as well as the transrectal ultrasound probe, and the procedure was terminated. The patient tolerated the procedure well and was taken to the recovery room in stable condition.
[2019-09-02 16:50] VITALS: RESP 16
[2019-09-02 17:08] VITALS: BP 104/70; PULSE 77
== END 2019-09-02 17:44 | disposition home or self-care (01) ==
LOC: OR 14:41
PROVIDERS: ATTEND Urology
DX: C61 Malignant neoplasm of prostate (principal); E78.5 Hyperlipidemia, unspecified; I10 Essential (primary) hypertension; Z88.0 Allergy status to penicillin; Z87.442 Personal history of urinary calculi; Z98.890 Other specified postprocedural states; Z87.891 Personal history of nicotine dependence; Z80.42 Family history of malignant neoplasm of prostate; Z80.1 Family history of malignant neoplasm of trachea, bronchus and lung; Z79.82 Long term (current) use of aspirin; Z79.899 Other long term (current) drug therapy
CPT/HCPCS: 55874; J2001; J2250; J1100; J2405; J1956; J3010; J2704

== ENCOUNTER → 2019-11-13 | Outpatient (CLI) | payer OTHER | END | disposition home or self-care (01) | LOC: LABWHC1 12:53 | PROVIDERS: ATTEND Radiology Radiation Oncology | DX: C61 Malignant neoplasm of prostate (principal); Z87.891 Personal history of nicotine dependence | CPT/HCPCS: 36415; 84153 ==

== ENCOUNTER → 2020-01-01 | Outpatient (CLI) | payer OTHER ==
--- NOTE | 2020-01-01 13:48 | US ---
EXAMINATION TYPE: US kidneys/renal and bladder DATE OF EXAM: 01/01/2020 COMPARISON: CLINICAL HISTORY: N18.3 chronic kidney disease, stage 3 moderate. hx renal stones. Hx prostate cance r. EXAM MEASUREMENTS: Right Kidney: 11.8 x 6.2 x 7.5 cm Left Kidney: 12.2 x 6.3 x 7.3 cm Right Kidney: upper pole cystic appearing lesion - 2.7 x 2.7 x 3.3 cm Left Kidney: Echogenic foci seen. Mid- 0.7 cm. Lower- 0.5 cm Bladder: mildly distended, anechoic. Wall - 0.9 cm. Posterior focal thickening vs lesion - 1.6 cm. Bilateral Jets seen There is no evidence for hydronephrosis at this point in time. The urinary bladder is anechoic. Sekou ateral ureteral jets are seen. IMPRESSION: 1. Simple appearing cyst upper pole right kidney. 2. Echogenic foci left kidney felt to reflect nonobstructing nephrolithiasis.
== END | disposition home or self-care (01) ==
LOC: RADUSWWP 13:01
PROVIDERS: ATTEND Family Medicine
DX: N28.1 Cyst of kidney, acquired (principal); N20.0 Calculus of kidney
CPT/HCPCS: 76770

== ENCOUNTER → 2020-03-18 | Outpatient (CLI) | payer OTHER ==
--- NOTE | 2020-03-18 10:24 | XR ---
EXAMINATION TYPE: XR KUB DATE OF EXAM: 03/18/2020 COMPARISON: None INDICATION: Preoperative clearance TECHNIQUE: Single view abdomen frontal projection FINDINGS: There is a normal bowel gas pattern. Psoas margins are normal. No organomegaly is present. There are multiple calcifications overlying the mid to inferior pole left kidney measuring 0.3 to 0.6 cm in size. Punctate calcification may be within the mid right kidney measuring 0.4 cm. The mid left ureter calcification is not excluded measuring 0.6 cm overlying the left sacral ala. Dis sabrina right fibular or calcification may be present measuring 0.7 cm. IMPRESSION: 1. Multiple bilateral renal stones. 2. Possible distal ureteral stones discussed above. Correlate with patient's symptoms.
== END | disposition home or self-care (01) ==
LOC: RADXRMAIN 09:28
PROVIDERS: ATTEND Urology
DX: N20.0 Calculus of kidney (principal)
CPT/HCPCS: 74018

== ENCOUNTER → 2020-03-23 | Outpatient (CLI) | payer OTHER ==
[2020-03-23 14:36] LABS: Basophils # (A) 0.1 k/uL (0-0.2); Basophils % (A) 1 %; Eosinophils # (A) 0.4 k/uL (0-0.7); Eosinophils % (A) 5 %; HCT 41.7 % (39.0-53.0); HGB 13.3 gm/dL (13.0-17.5); Hypochromasia Slight; Lymphocytes # (A) 1.5 k/uL (1.0-4.8); Lymphocytes % (A) 19 %; MCH 28.1 pg (25.0-35.0); MCHC 31.8 g/dL (31.0-37.0); MCV 88.4 fL (80.0-100.0); Mean Platelet Volume 6.9; Monocytes # (A) 0.6 k/uL (0-1.0); Monocytes % (A) 7 %; Neutrophils # (A) 5.4 k/uL (1.3-7.7); Neutrophils % (A) 67 %; Platelet Count 288 k/uL (150-450); RBC 4.72 m/uL (4.30-5.90); WBC 8.1 k/uL (3.8-10.6)
[2020-03-23 14:50] LABS: Calcium 9.6 mg/dL (8.4-10.2); Potassium 4.1 mmol/L (3.5-5.1)
== END | disposition home or self-care (01) ==
LOC: LABPAT 14:06
PROVIDERS: ATTEND Urology
DX: Z01.818 Encounter for other preprocedural examination (principal); N20.1 Calculus of ureter
CPT/HCPCS: 36415; 80048; 85025

== ENCOUNTER 2020-03-29 11:03 | Day surgery (SDC) | payer OTHER ==
[2020-03-23 11:43] VITALS: BMI 37.8
--- NOTE | 2020-03-28 18:58 | P.GSHP ---
History of Present Illness H&P Date: 03/28/20 Chief Complaint: Left flank pain The patient is a 59-year-old white male found to have an elevated PSA level of 4.47. DIOGENES revealed no prostate nodules. Prostate ultrasound revealed a prostate volume of 52 mL. 2 of 12 biopsies showed [place] 7 (3+4) adenocarcinoma, low volume. The Polaris score was 3.6. Alternative treatment options have been reviewed in detail with the patient and his , and he was treated with IMRT earlier this year. On he developed microhematuria and felt that his urinary stream was diminished. Cystoscopy was performed, and he was noted to have necrotic tissue within the bulbous urethra which was removed. He subsequently voided better, but developed left flank pain. A KUB x-ray suggests the presence of a 6 mm left midureteral calculus, as well as multiple left renal calculi measuring up to 6 mm in size. On the right side, there appeared to be a 7 mm distal ureteral calculus and a possible 4 mm right renal calculus. He was offered the option of computed tomography scan imaging versus cystoscopy, retrograde pyelograms, and ureteroscopy with laser lithotripsy. He has elected to proceed with the latter approach. - Constitutional Constitutional: Denies chills, Denies fever - Genitourinary (Male) Genitourinary: Reports flank pain, Reports kidney stones Past Medical History Past Medical History: Cancer, GERD/Reflux, Hyperlipidemia, Hypertension, Prostate Disorder, Rheumatoid Arthritis (RA) Additional Past Medical History / Comment(s): Kidney stones, prostate cancer( kidney function low after radiatrion tx 11/18) History of Any Multi-Drug Resistant Organisms: None Reported Past Surgical History: Orthopedic Surgery Additional Past Surgical History / Comment(s): Right knee arthroscopy, colonscopy, cyst removed middle finger rt hand, rt shoulder rotator cuff, SpaceOAR spacer Past Anesthesia/Blood Transfusion Reactions: No Reported Reaction Smoking Status: Former smoker - Past Family History Father Family Medical History: Cancer Additional Family Medical History / Comment(s): prostate CA Mother Family Medical History: Cancer Additional Family Medical History / Comment(s): Lung CA Medications and Allergies Home Medications Medication Instructions Recorded Confirmed Type Aspirin 81 mg PO DAILY 10/08/17 03/23/20 History Atorvastatin [Lipitor] 10 mg PO DIRECTED 10/08/17 03/23/20 History lisinopriL [Zestril] 20 mg PO DAILY 08/25/19 03/23/20 History Cholecalciferol [Vitamin D3 (25 2,000 unit PO DAILY 03/23/20 03/23/20 History Mcg = 1000 Iu)] Metoprolol Tartrate [Lopressor] 50 mg PO BID 03/23/20 03/23/20 History Toradol(Dose Unknown) 1 tab PO DIRECTED PRN MDD not 03/23/20 History started yet Vitamin B(Dose Unknown) 1 tab PO DAILY 03/23/20 03/23/20 History Vitamin C(Dose Unknown) 1 tab PO DAILY 03/23/20 03/23/20 History Allergies Allergy/AdvReac Type Severity Reaction Status Date / Time almond Allergy Anaphylaxis Verified 03/23/20 11:31 Penicillins Allergy Rash/Hives/ Verified 03/23/20 11:31 SOB/itching Surgical - Exam - General well developed, well nourished, no distress - Respiratory normal respiratory effort - Abdomen Abdomen: soft, non tender, no guarding, no rigid, no rebound - Genitourinary normal penis with no external lesions, testicles non-tender - Psychiatric oriented to time, oriented to person, oriented to place, speech is normal, memory intact Results - Imaging Abdominal x-ray: report reviewed, image reviewed Assessment and Plan (1) Calculus of kidney Status: Acute Code(s): N20.0 - CALCULUS OF KIDNEY SNOMED Code(s): 29015307 (2) Calculus of ureter Status: Acute Code(s): N20.1 - CALCULUS OF URETER SNOMED Code(s): 08182728 Plan: Cystoscopy, bilateral retrograde pyelograms, bilateral ureteroscopy with Holmium laser lithotripsy and possible stone basketing, bilateral ureteral stent insertion. The procedure has been reviewed in detail with the patient and his . They are aware of potential risks, which include anesthesia, bleeding, infection, and ureteral injury. The possible need for a direct visual internal ureterotomy has been discussed, as he may have developed a urethral stricture.
[~2020-03-29 11:03] MED LIST changes: -DEXAMETHASONE SOD PHOSPHATE 10 MG/ML 1 ML VIAL IV ONE; -HYDROmorphone 0.5 MG/0.5 ML SYRINGE IVP PRN; -LACTATED RINGERS 1,000 ML IV SCH; -LEVOFLOXACIN 500MG-D5W PMX 500 MG in DEXTROSE/WATER 1 100ML.BAG IVPB ONE; +LEVOFLOXACIN 500MG-D5W PMX 500 MG in DEXTROSE/WATER 1 100ML.BAG IVPB PRN; -LIDOCAINE 1% (10MG/ML) FOR IV START INTRADERMA PRN; -ONDANSETRON 4 MG/2 ML VIAL IVP ONE
--- NOTE | 2020-03-29 11:33 | XR ---
EXAMINATION TYPE: XR KUB DATE OF EXAM: 03/29/2020 COMPARISON: 03/18/2020 HISTORY: Renal stones TECHNIQUE: AP abdomen FINDINGS: 0.6 cm calcification is in the right hemipelvis. Left calcifications overlying the sacral a la are present measuring 0.3 and 0.6 cm. Left-sided renal stones are not well identified on the curre nt examination. There is overlying bowel gas and fecal debris. No mass effect is evident. Psoas jany ns are normal. IMPRESSION: 1. Pelvic calcifications appear stable from comparison. 2. The suspected prior renal stones are not well visualized on the current exam
[2020-03-29] MEDS ORDERED: HYDROmorphone 0.5 MG/0.5 ML SYRINGE IVP PRN (11:39)
[2020-03-29] MEDS ORDERED: MIDAZOLAM 2 MG/2 ML VIAL IV PRN (11:39)
[2020-03-29] MEDS ORDERED: DEXAMETHASONE SOD PHOSPHATE 4 MG/ML 1 ML VIAL IV ONE (11:39)
[2020-03-29] MEDS ORDERED: LIDOCAINE 1% (10MG/ML) FOR IV START INTRADERMA PRN (11:39)
[2020-03-29] MEDS ORDERED: LACTATED RINGERS 1,000 ML IV SCH (11:39)
[2020-03-29] MEDS: ONDANSETRON 4 MG/2 ML VIAL IVP ONE ×2 (12:14→14:27)
[2020-03-29] MEDS ORDERED: SUCCINYLCHOLINE CHLORIDE 100 MG/5 ML SYR IV ONE (12:45)
[2020-03-29] MEDS ORDERED: LIDOCAINE 1% INJ 10MG/ML (20 ML MDV) ONE (12:45)
[2020-03-29] MEDS ORDERED: PROPOFOL 10 MG/ML 20 ML VIAL IV ONE (12:45)
[2020-03-29] MEDS ORDERED: fentaNYL (PF) 50 MCG/ML 2 ML AMP ONE (12:45)
[2020-03-29] MEDS ORDERED: MIDAZOLAM 2 MG/2 ML VIAL ONE (12:45)
[2020-03-29] MEDS ORDERED: IOPAMIDOL-370 50ML BTL MISCELLANE ONE (13:30)
[2020-03-29 14:19] VITALS: TEMP 97
--- NOTE | 2020-03-29 14:22 | P.OP ---
Date of Procedure: 03/29/20 Preoperative Diagnosis: Renal colic Postoperative Diagnosis: Renal colic, urethral stricture Procedure(s) Performed: Cystoscopy, direct visual internal ureterotomy (DVIU), bilateral retrograde pyelograms, left ureteroscopy Anesthesia: HAMILTONA Surgeon: Tommy Gonzalez Estimated Blood Loss (ml): 5 IV fluids (ml): 400 Pathology: none sent Condition: stable Disposition: PACU Indications for Procedure: The patient is a 59-year-old white male found to have an elevated PSA level of 4.47. DIOGENES revealed no prostate nodules. Prostate ultrasound revealed a prostate volume of 52 mL. 2 of 12 biopsies showed [place] 7 (3+4) adenocarcinoma, low volume. The Polaris score was 3.6. Alternative treatment options have been reviewed in detail with the patient and his , and he was treated with IMRT earlier this year. On he developed microhematuria and felt that his urinary stream was diminished. Cystoscopy was performed, and he was noted to have necrotic tissue within the bulbous urethra which was removed. He subsequently voided better, but developed left flank pain. A KUB x-ray suggests the presence of a 6 mm left midureteral calculus, as well as multiple left renal calculi measuring up to 6 mm in size. On the right side, there appeared to be a 7 mm distal ureteral calculus and a possible 4 mm right renal calculus. He was offered the option of computed tomography scan imaging versus cystoscopy, retrograde pyelograms, and ureteroscopy with laser lithotripsy. He has elected to proceed with the latter approach. Operative Findings: 1) Bulbous urethral stricture. 2) No ureteral calculi seen. Description of Procedure: The patient was taken to the operating room and placed in the dorsolithotomy position, with his legs supported in Bob stirrups. The external genitalia was prepped and draped sterilely. The 30 lens was used to pass the Fuentes cystoscopic sheath through the urethra. The penile urethra appeared normal. However, a stricture was identified within the proximal bulbous urethra. The lumen was difficult to visualize. The 0 lens was used to advance the Storz visual urethrotome into the urethra. A 0.035 inch Glidewire was passed through the lumen and into the bladder. Using the straight blade, the stricture was incised at the 12 o'clock position. The incision was carried through the full- thickness of the stricture. The stricture measured approximately 2 cm in length, and was distal to the external urinary sphincter. It was then possible to advance the visual urethrotome into the bladder. Cystoscopy was performed. The 30 lens was used to introduce the Fuentes cystoscopic sheath through the urethra and into the bladder under direct vision. The prostate revealed a bilobar configuration. The bladder was examined in its entirety. Both ureteral orifices were of normal anatomic location and configuration, and clear urine effluxed from both. No tumors or foreign bodies were seen. Using an 8-[place] cone-tipped catheter, bilateral retrograde pyel ograms were performed. The course of each ureter was seen on fluoroscopy. The right ureter was normal in caliber, and there was no evidence of right hydronephrosis. The system drained promptly. The distal half of the left ureter was visualized and appeared normal. A 0.035 inch Glidewire was passed through the cystoscope. The left ureteral orifice was cannulated, and the Glidewire was advanced up to the left renal pelvis. The cystoscope was removed, and the semirigid ureteroscope was advanced into the bladder under direct vision. The ureteroscope was advanced into the left ureter alongside the Glidewire and up to the left renal pelvis. The left ureter appeared normal, and specifically no calculi were seen. The ureteroscope was withdrawn, and an 18- [place] Mcgregor catheter was placed. The return was clear. The patient tolerated the procedure well was taken to the recovery room in stable condition.
--- NOTE | 2020-03-29 14:28 | FL ---
Fluoroscopy HISTORY: Bilateral kidney stones 73 seconds fluoroscopy time supplied to the referring clinician. 3 intraoperative C-arm images docum ent the procedure. See dictated report from urology.
[2020-03-29 15:01] VITALS: RESP 18
[2020-03-29 15:16] VITALS: PULSE 67
[2020-03-29 15:26] VITALS: BP 148/78
== END 2020-03-29 15:33 | disposition home or self-care (01) ==
LOC: OR 11:03
PROVIDERS: ATTEND Urology
DX: N23 Unspecified renal colic (principal); N35.919 Unspecified urethral stricture, male, unspecified site; K21.9 Gastro-esophageal reflux disease without esophagitis; E78.5 Hyperlipidemia, unspecified; I10 Essential (primary) hypertension; M06.9 Rheumatoid arthritis, unspecified; Z87.442 Personal history of urinary calculi; Z85.46 Personal history of malignant neoplasm of prostate; Z92.3 Personal history of irradiation; Z98.890 Other specified postprocedural states; Z97.2 Presence of dental prosthetic device (complete) (partial); Z87.891 Personal history of nicotine dependence; Z80.42 Family history of malignant neoplasm of prostate; Z80.1 Family history of malignant neoplasm of trachea, bronchus and lung; Z79.82 Long term (current) use of aspirin; Z79.899 Other long term (current) drug therapy; Z88.0 Allergy status to penicillin; Z91.018 Allergy to other foods
CPT/HCPCS: 74420; 74018; 52341; C1758 ×2; C1769; J2250; J1100; J2405; J1956; J2001; J3010; J0330; J2704; Q9967

== ENCOUNTER 2020-06-27 18:57 | Emergency (ER) | payer OTHER ==
[2020-06-27 19:03] VITALS: TEMP 97.6
--- NOTE | 2020-06-27 19:35 | ED ---
General Adult HPI - General Chief complaint: Urogenital Stated complaint: abd pain/trouble unrinating Time Seen by Provider: 06/27/20 19:30 Source: patient Mode of arrival: ambulatory Limitations: no limitations - History of Present Illness Initial comments: Dictation was produced using [id number] dictation software. please excuse any grammatical, word or spelling errors. This patient was cared for during a federal and state declared state of emergency secondary to Covid 19 Chief Complaint: 59-year-old male presents with urinary retention History of Present Illness: Patient is 59-year-old male presents today with urinary retention. Patient has not had any passage of urine for several hours. Patient has history of prostate disease. He see Dr. Bazzi. Patient has history of urologic cancer. The ROS documented in this emergency department record has been reviewed and confirmed by me. Those systems with pertinent positive or negative responses have been documented in the HPI. All other systems are other negative and/or noncontributory. PHYSICAL EXAM: General Impression: Alert and oriented x3, tremulous, diaphoretic HEENT: Normocephalic atraumatic, extra-ocular movements intact, pupils equal and reactive to light bilaterally, mucous membranes moist. Cardiovascular: Heart regular rate and rhythm Chest: Able to complete full sentences, no retractions, no tachypnea Abdomen: abdomen soft, non-tender suprapubic fullness, no organomegaly Musculoskeletal: Pulses present and equal in all extremities, no peripheral edema Motor: no focal deficits noted Neurological: CN II-XII grossly intact, no focal motor or sensory deficits noted Skin: Intact with no visualized rashes Psych: Normal affect and mood ED course: 59-year-old male click or presentation consistent with urinary retention. Vital signs upon arrival are within acceptable limits. Mcgregor catheter was placed. Drainage of 1000 mL of urine was obtained. Urine sent for urinalysis. Patient given leg bag and discharged told to follow-up with his urologist. - Related Data Home Medications Medication Instructions Recorded Confirmed Aspirin 81 mg PO DAILY 10/08/17 03/29/20 Atorvastatin [Lipitor] 10 mg PO DIRECTED 10/08/17 03/29/20 lisinopriL [Zestril] 20 mg PO DAILY 08/25/19 03/29/20 Cholecalciferol [Vitamin D3 (25 2,000 unit PO DAILY 03/23/20 03/29/20 Mcg = 1000 Iu)] Metoprolol Tartrate [Lopressor] 50 mg PO BID 03/23/20 03/29/20 Toradol(Dose Unknown) 1 tab PO DIRECTED PRN MDD not 03/23/20 03/29/20 started yet Vitamin B(Dose Unknown) 1 tab PO DAILY 03/23/20 03/29/20 Vitamin C(Dose Unknown) 1 tab PO DAILY 03/23/20 03/29/20 Allergies Allergy/AdvReac Type Severity Reaction Status Date / Time almond Allergy Anaphylaxis Verified 06/27/20 19:03 Penicillins Allergy Rash/Hives/ Verified 06/27/20 19:03 SOB/itching Review of Systems ROS Statement: Those systems with pertinent positive or pertinent negative responses have been documented in the HPI. ROS Other: All systems not noted in ROS Statement are negative. Past Medical History Past Medical History: Cancer, GERD/Reflux, Hyperlipidemia, Hypertension, Prost ate Disorder, Rheumatoid Arthritis (RA) Additional Past Medical History / Comment(s): Kidney stones, prostate cancer( kidney function low after radiatrion tx 11/18) History of Any Multi-Drug Resistant Organisms: None Reported Past Surgical History: Orthopedic Surgery Additional Past Surgical History / Comment(s): Right knee arthroscopy, colonscopy, cyst removed middle finger rt hand, rt shoulder rotator cuff, SpaceOAR spacer Past Anesthesia/Blood Transfusion Reactions: No Reported Reaction Past Psychological History: No Psychological Hx Reported Smoking Status: Former smoker - Past Family History Father Family Medical History: Cancer Additional Family Medical History / Comment(s): prostate CA Mother Family Medical History: Cancer Additional Family Medical History / Comment(s): Lung CA General Exam Limitations: no limitations Course Vital Signs 06/27/20 19:01 Temperature 97.6 F Pulse Rate 92 Respiratory 18 Rate Blood Pressure 187/104 O2 Sat by Pulse 96 Oximetry Disposition Clinical Impression: Urinary retention Disposition: HOME SELF-CARE Condition: Good Instructions (If sedation given, give patient instructions): Urinary Retention in Men (ED) Is patient prescribed a controlled substance at d/c from ED?: No Referrals: Tommy Gonzalez MD [STAFF PHYSICIAN] - 1-2 days Time of Disposition: 19:35
[2020-06-27 21:10] VITALS: BP 171/104; PULSE 77; RESP 16
[2020-06-27 22:45] LABS: Appearance,Urine Clear (Clear); Bacteria,Urine Few /hpf; Bilirubin,Urine Negative (Negative); Blood,Urine Large (Negative); Color,Urine Yellow; Glucose,Urine (UA) Negative (Negative); Hyaline Casts,Urine 2 /lpf (0-2); Ketones,Urine Negative (Negative); Leukocyte Esterase,Urine Large (Negative); Mucus,Urine Rare /hpf; Nitrite,Urine Negative (Negative); PH, Urine 6.5 (5.0-8.0); Protein,Urine Trace (Negative); RBC,Urine >182 /hpf (0-5); Specific Gravity,Urine 1.016 (1.001-1.035); Urobilinogen,Urine <2.0 mg/dL (<2.0); WBC,Urine 56 /hpf (0-5)
== END 2020-06-27 21:07 | disposition home or self-care (01) ==
LOC: EC 18:57
DX: R33.9 Retention of urine, unspecified (principal); I10 Essential (primary) hypertension; E78.5 Hyperlipidemia, unspecified; M06.9 Rheumatoid arthritis, unspecified; Z79.899 Other long term (current) drug therapy; Z79.82 Long term (current) use of aspirin; Z88.0 Allergy status to penicillin; Z91.018 Allergy to other foods; Z87.891 Personal history of nicotine dependence; Z85.46 Personal history of malignant neoplasm of prostate; Z87.442 Personal history of urinary calculi
CPT/HCPCS: 51702; 81001; 99283

== ENCOUNTER 2020-07-02 08:45 | Emergency (ER) | payer OTHER ==
[2020-07-02 08:51] VITALS: PULSE 90; TEMP 98.9
--- NOTE | 2020-07-02 09:07 | ED ---
General Adult HPI - General Chief complaint: Abdominal Pain Stated complaint: Male UG Time Seen by Provider: 07/02/20 08:45 Source: patient, RN notes reviewed, old records reviewed Mode of arrival: ambulatory Limitations: no limitations - History of Present Illness Initial comments: This is a 59-year-old male presents emergency Department with a past medical history significant for prostate cancer. Patient states it radiation about 6 months ago. Patient states last week he started having some blood in the urine eventually his urethra got clogged off and he had have a catheter placed. Patient went to see Dr. De Jesus he removed the catheter started him on some antibiotics. Patient states yesterday started noticing blood again and this morning he was unable to urinate. Patient complains of suprapubic abdominal pain. Patient denies any back pain. Patient denies any fever chills. Patient denies any blood thinners. - Related Data Home Medications Medication Instructions Recorded Confirmed Aspirin 81 mg PO DAILY 10/08/17 03/29/20 Atorvastatin [Lipitor] 10 mg PO DIRECTED 10/08/17 03/29/20 lisinopriL [Zestril] 20 mg PO DAILY 08/25/19 03/29/20 Cholecalciferol [Vitamin D3 (25 2,000 unit PO DAILY 03/23/20 03/29/20 Mcg = 1000 Iu)] Metoprolol Tartrate [Lopressor] 50 mg PO BID 03/23/20 03/29/20 Toradol(Dose Unknown) 1 tab PO DIRECTED PRN MDD not 03/23/20 03/29/20 started yet Vitamin B(Dose Unknown) 1 tab PO DAILY 03/23/20 03/29/20 Vitamin C(Dose Unknown) 1 tab PO DAILY 03/23/20 03/29/20 Allergies Allergy/AdvReac Type Severity Reaction Status Date / Time almond Allergy Anaphylaxis Verified 07/02/20 08:51 Penicillins Allergy Rash/Hives/ Verified 07/02/20 08:51 SOB/itching Review of Systems ROS Statement: Those systems with pertinent positive or pertinent negative responses have been documented in the HPI. ROS Other: All systems not noted in ROS Statement are negative. Past Medical History Past Medical History: Cancer, GERD/Reflux, Hyperlipidemia, Hypertension, Prostate Disorder, Rheumatoid Arthritis (RA) Additional Past Medical History / Comment(s): Kidney stones, prostate cancer( ki dney function low after radiatrion tx 11/18) History of Any Multi-Drug Resistant Organisms: None Reported Past Surgical History: Orthopedic Surgery Additional Past Surgical History / Comment(s): Right knee arthroscopy, colonscopy, cyst removed middle finger rt hand, rt shoulder rotator cuff, SpaceOAR spacer Past Anesthesia/Blood Transfusion Reactions: No Reported Reaction Past Psychological History: No Psychological Hx Reported Smoking Status: Former smoker Past Alcohol Use History: None Reported Past Drug Use History: None Reported - Past Family History Father Family Medical History: Cancer Additional Family Medical History / Comment(s): prostate CA Mother Family Medical History: Cancer Additional Family Medical History / Comment(s): Lung CA General Exam - General Exam Comments Initial Comments: GENERAL: Patient is well-developed and well-nourished. Patient is nontoxic and well- hydrated and is in mild distress. ENT: Neck is soft and supple. No significant lymphadenopathy is noted. Oropharynx is clear. Moist mucous membranes. Neck has full range of motion without eliciting any pain. EYES: The sclera were anicteric and conjunctiva were pink and moist. Extraocular movements were intact and pupils were equal round and reactive to light. Eyelids were unremarkable. PULMONARY: Unlabored respirations. Good breath sounds bilaterally. No audible rales rhonchi or wheezing was noted. CARDIOVASCULAR: There is a regular rate and rhythm without any murmurs gallops or rubs. ABDOMEN: Soft and nontender with normal bowel sounds. SKIN: Skin is clear with no lesions or rashes and otherwise unremarkable. NEUROLOGIC: Patient is alert and oriented x3. Cranial nerves II through XII are grossly intact. Motor and sensory are also intact. Normal speech, volume and content. Symmetrical smile. MUSCULOSKELETAL: Normal extremities with adequate strength and full range of motion. LYMPHATICS: No significant lymphadenopathy is noted PSYCHIATRIC: Normal psychiatric evaluation. Limitations: no limitations Course Vital Signs 07/02/20 08:48 Temperature 98.9 F Pulse Rate 90 Respiratory 20 Rate Blood Pressure 198/115 O2 Sat by Pulse 98 Oximetry Medical Decision Making - Medical Decision Making Patient is already on Bactrim. Patient was having urinary retention we placed a Mcgregor catheter and irrigated out and got quite a few blood clots out. After which the Mcgregor was working in the urine was clear. Disposition Clinical Impression: Urinary retention Disposition: HOME SELF-CARE Condition: Good Is patient prescribed a controlled substance at d/c from ED?: No Referrals: Tommy Gonzalez MD [STAFF PHYSICIAN] - 1-2 days Time of Disposition: 10:16
[2020-07-02 11:29] VITALS: BP 148/72; RESP 18
== END 2020-07-02 11:28 | disposition home or self-care (01) ==
LOC: EC 08:45
DX: R33.9 Retention of urine, unspecified (principal); E78.5 Hyperlipidemia, unspecified; K21.9 Gastro-esophageal reflux disease without esophagitis; I10 Essential (primary) hypertension; Z79.82 Long term (current) use of aspirin; Z85.46 Personal history of malignant neoplasm of prostate; Z85.528 Personal history of other malignant neoplasm of kidney; Z88.0 Allergy status to penicillin; Z87.891 Personal history of nicotine dependence
CPT/HCPCS: 99283

== ENCOUNTER → 2021-12-15 | Outpatient (CLI) | payer OTHER ==
[2021-12-15 14:50] LABS: HCT 44.3 % (39.6-50.0); HGB 13.9 g/dL (13.0-17.0); MCH 27.5 pg (27.0-32.0); MCHC 31.4 g/dL (32.0-37.0); MCV 87.5 fL (80.0-97.0); Mean Platelet Volume 10.2 fL (9.5-12.2); NRBC Per 100 WBC 0 /100 WBCS (0.0-0.0); Platelet Count 287 X 10*3/uL (140-440); RBC 5.06 X 10*6/uL (4.40-5.60); RDW 14.6 % (11.5-14.5); WBC 8.36 X 10*3/uL (4.50-10.00)
[2021-12-15 16:29] LABS: ALT 23 U/L (10-49); AST 23 U/L (14-35); African American GFR (CKD) 53.9 (60.0-200.0); BUN/Creat Ratio 9.44 Ratio (12.00-20.00); Blood Urea Nitrogen 15.1 mg/dL (9.0-27.0); Calcium 9.9 mg/dL (8.7-10.3); Carbon Dioxide 24.3 mmol/L (20.0-27.5); Chloride 107 mmol/L (96-109); Chol/HDL Ratio 2.72 Ratio; Glucose 97 mg/dL (70-110); LDL Cholesterol,Calculated 61.6 mg/dL (0.0-131.0); Non-African American GFR(CKD) 46.5 (60.0-200.0); Potassium 4.3 mmol/L (3.5-5.5); Sodium 143 mmol/L (135-145); VLDL Calculation 16.84 mg/dL (5.00-40.00)
== END | disposition home or self-care (01) ==
LOC: LABWHC1 08:56
PROVIDERS: ATTEND Family Medicine
DX: I10 Essential (primary) hypertension (principal); E78.5 Hyperlipidemia, unspecified; R73.03 Prediabetes; R53.83 Other fatigue
CPT/HCPCS: 36415; 80048; 80061; 82306; 82607; 83036; 84402; 84403; 84439; 84443; 84450; 84460; 85027

== ENCOUNTER 2023-03-01 09:49 | Day surgery (SDC) | payer OTHER ==
[2023-02-27 12:07] VITALS: BMI 37.9
[~2023-03-01 09:49] MED LIST changes: -LEVOFLOXACIN 500MG-D5W PMX 500 MG in DEXTROSE/WATER 1 100ML.BAG IVPB PRN; +LIDOCAINE 1% (10MG/ML) FOR IV START INTRADERMA PRN
[2023-03-01] MEDS: LACTATED RINGERS 1,000 ML IV SCH ×2 (10:18→11:45)
[2023-03-01 10:49] VITALS: TEMP 97
[2023-03-01] MEDS ORDERED: PROPOFOL 10 MG/ML 20 ML VIAL IV ONE (11:47)
[2023-03-01] MEDS ORDERED: LIDOCAINE 1% INJ 10MG/ML (20 ML MDV) ONE (11:47)
--- NOTE | 2023-03-01 12:10 | P.PCN ---
Date of Procedure: 03/01/23 Procedure(s) Performed: BRIEF HISTORY: Patient is a 62-year-old pleasant male scheduled for an elective colonoscopy as a part of evaluation of prior history of colon polyps. Last colonoscopy was 5 years ago. PROCEDURE PERFORMED: Colonoscopy with snare polypectomy.. PREOPERATIVE DIAGNOSIS: History of colon polyps. IV sedation per Anesthesia. PROCEDURE: After informed consent was obtained, the patient, was brought into the endoscopy unit. IV sedation was administered by Anesthesia under continuous monitoring. Digital rectal examination was normal. Initially the Olympus CF-160 flexible video colonoscope was then inserted in the rectum, gradually advanced into the cecum without any difficulty. Careful examination was performed as the scope was gradually being withdrawn. Ileocecal valve and the appendiceal orifice were visualized and appeared normal. Prep was excellent. Mucosa of the cecum, ascending colon, transverse colon appeared normal. The descending colon there was a 1 cm polyp removed by snare polypectomy. In the sigmoid colon there were 4 polyps measuring between 1 cm to 2 cm in size all of which were removed by snare polypectomy. Rest of the sigmoid colon, and rectum appeared normal. At her sigmoid diverticulosis. Retroflexion was performed in the rectum and no lesions were seen. The patient tolerated the procedure well. IMPRESSION: 1 cm descending colon polyp status post polyp rectum 4 polyps in the sigmoid colon measuring between 1 cm to 2 cm in size all of wh ich were removed by snare polypectomy. Scattered sigmoid diverticulosis RECOMMENDATIONS: Findings of this examination were discussed with the patient is well as his family. He was advised to follow with the biopsy results. If the biopsy revealed adenoma he can have a repeat colonoscopy in 3 years.
[2023-03-01 12:39] VITALS: BP 138/88; PULSE 71; RESP 18
== END 2023-03-01 12:49 | disposition home or self-care (01) ==
LOC: ORWHC2ENDO 09:49
PROVIDERS: ATTEND Internal Medicine Gastroenterology
DX: Z12.11 Encounter for screening for malignant neoplasm of colon (principal); D12.4 Benign neoplasm of descending colon; K57.30 Diverticulosis of large intestine without perforation or abscess without bleeding; I10 Essential (primary) hypertension; E78.5 Hyperlipidemia, unspecified; M06.9 Rheumatoid arthritis, unspecified; I12.9 Hypertensive chronic kidney disease with stage 1 through stage 4 chronic kidney disease, or unspecified chronic kidney disease; N18.30 Chronic kidney disease, stage 3 unspecified; K21.9 Gastro-esophageal reflux disease without esophagitis; E66.9 Obesity, unspecified; Z68.37 Body mass index [BMI] 37.0-37.9, adult; Z79.899 Other long term (current) drug therapy; Z86.010 Personal history of colon polyps; Z91.018 Allergy to other foods; Z87.891 Personal history of nicotine dependence; Z88.0 Allergy status to penicillin
CPT/HCPCS: 88305; 45385; J2001; J2704

== ENCOUNTER → 2024-09-05 | Outpatient (CLI) | payer OTHER ==
[2024-09-06 00:47] LABS: Chol/HDL Ratio 2.41 Ratio; LDL Cholesterol,Calculated 50.4 mg/dL (0.0-131.0)
[2024-09-06 00:48] LABS: ALT 34 U/L (10-49); AST 25 U/L (14-35); Albumin 3.8 g/dL (3.8-4.9); Albumin/Globulin Ratio 1.81 Ratio (1.60-3.17); Alkaline Phosphatase 92 U/L (41-126); BUN/Creat Ratio 10.93 Ratio (12.00-20.00); Blood Urea Nitrogen 16.4 mg/dL (9.0-27.0); Calcium 10.3 mg/dL (8.7-10.3); Carbon Dioxide 25.1 mmol/L (21.6-31.8); Chloride 105 mmol/L (96-109); Globulin 2.1 g/dL (1.6-3.3); Glucose 97 mg/dL (70-110); Potassium 4.6 mmol/L (3.5-5.5); Prostate Specific Antigen 0.32 ng/mL (0.000-4.500); Sodium 140 mmol/L (135-145); Total Bilirubin 0.5 mg/dL (0.3-1.2); Total Protein 5.9 g/dL (6.2-8.2)
[2024-09-06 06:04] LABS: Appearance,Urine Clear (Clear); Bilirubin,Urine Negative (Negative); Blood,Urine Negative (Negative); Color,Urine Yellow (Yellow); Ketones,Urine Negative (Negative); Nitrite,Urine Negative (Negative); PH, Urine 6.5; Specific Gravity,Urine 1.013 (1.001-1.030); Urobilinogen,Urine 0.2 E.U./DL
[2024-09-06 06:10] LABS: Bacteria,Urine None Seen (None Seen)
== END | disposition home or self-care (01) ==
LOC: LABWHC1 10:49
PROVIDERS: ATTEND Family Medicine
DX: Z00.00 Encounter for general adult medical examination without abnormal findings (principal); E88.819 Insulin resistance, unspecified
CPT/HCPCS: 36415; 80053; 80061; 81001; 82306; 83036; 84153; 84443